=== PATIENT | female | born 1970 | race Caucasian/White ===

== ENCOUNTER 2018-08-11 10:53 | Day surgery (SDC) | payer OTHER | END 2018-08-11 12:18 | disposition home or self-care (01) | LOC: FINFUSION 10:53 → FM/S 10:55 → FINFUSION 12:18 ==

== ENCOUNTER 2018-08-18 09:07 | Day surgery (SDC) | payer OTHER ==
[2018-08-18] MEDS ORDERED: IRON SUCROSE INJECTION 200 MG in SODIUM CHLORIDE 100 ML IVPB ONE (09:30)
[2018-08-18 09:43] VITALS: PULSE 59; TEMP 98.7
[2018-08-18 10:20] VITALS: BP 101/72
== END 2018-08-18 10:26 | disposition home or self-care (01) ==
LOC: FINFUSION 09:07 → FM/S 09:33 → FINFUSION 10:26
PROVIDERS: ATTEND Internal Medicine Hematology & Oncology
PROC: 3E033GC Introduction of Other Therapeutic Substance into Peripheral Vein, Percutaneous Approach (ICD-10-PCS; principal; 2018-08-18)
DX: D50.8 Other iron deficiency anemias (principal)
CPT/HCPCS: 96365; J1756

== ENCOUNTER 2018-08-25 08:17 | Day surgery (SDC) | payer OTHER ==
[2018-08-25] MEDS ORDERED: IRON SUCROSE INJECTION 200 MG in SODIUM CHLORIDE 100 ML IVPB ONE (09:00)
[2018-08-25 09:14] VITALS: TEMP 98.6
[2018-08-25 09:42] VITALS: BP 97/64; PULSE 61
== END 2018-08-25 09:45 | disposition home or self-care (01) ==
LOC: FINFUSION 08:17 → FM/S 08:18 → FINFUSION 09:45
PROVIDERS: ATTEND Internal Medicine Hematology & Oncology
PROC: 3E033GC Introduction of Other Therapeutic Substance into Peripheral Vein, Percutaneous Approach (ICD-10-PCS; principal; 2018-08-25)
DX: D50.9 Iron deficiency anemia, unspecified (principal)
CPT/HCPCS: 96365; J1756

== ENCOUNTER 2018-08-31 08:23 | Day surgery (SDC) | payer OTHER ==
[2018-08-31] MEDS ORDERED: IRON SUCROSE INJECTION 200 MG in SODIUM CHLORIDE 90 ML IVPB ONE (09:00)
[2018-08-31 13:15] VITALS: BP 102/66; PULSE 66; TEMP 98.6
== END 2018-08-31 10:30 | disposition home or self-care (01) ==
LOC: FINFUSION 08:23 → FM/S 08:26 → FINFUSION 10:30
PROVIDERS: ATTEND Internal Medicine Hematology & Oncology
PROC: 3E033GC Introduction of Other Therapeutic Substance into Peripheral Vein, Percutaneous Approach (ICD-10-PCS; principal; 2018-08-31)
DX: D50.9 Iron deficiency anemia, unspecified (principal)
CPT/HCPCS: 96365; J1756

== ENCOUNTER → 2018-09-08 | Day surgery (SDC) | payer OTHER ==
[~2018-09-08] MED LIST: IRON SUCROSE INJECTION 200 MG in SODIUM CHLORIDE 100 ML IVPB ONE
[2018-09-08 12:34] VITALS: BP 104/69; PULSE 68; TEMP 98.7
== END | disposition home or self-care (01) ==
LOC: FASU 09:36 → FINFUSION 09:36 → FASU 09:42
PROVIDERS: ATTEND Internal Medicine Hematology & Oncology
PROC: 3E033GC Introduction of Other Therapeutic Substance into Peripheral Vein, Percutaneous Approach (ICD-10-PCS; principal; 2018-09-08)
DX: D50.9 Iron deficiency anemia, unspecified (principal)
CPT/HCPCS: 96365; J1756